=== PATIENT | female | born 1970 | race African-American/Black ===

== ENCOUNTER 2020-03-03 23:51 | Emergency (ER) | payer OTHER ==
[~2020-03-03] VITALS: Ht 167.6 cm; Wt 89.8 kg
[~2020-03-03 23:51] MED LIST: AMOXICILLIN 50500 MG PO; FLAGYL500 MG PO; LORTAB 5 MG/5001 TAB PO; NORCO 5-325 TA1 EACH PO; PERCOCET 5-3251 EACH PO
[2020-03-04 01:13] LABS: ABSOLUTE NEUTROPHILS 5.6 thou/uL (1.4-8.2); BASOPHILS 1.1 % (0.0-2.0); HEMATOCRIT 36.8 % (37.0-47.0); HEMOGLOBIN 12.2 gm/dL (12.0-15.0); MCH 28.5 pg (26.0-34.0); MCHC 33.2 g/dL (28.0-37.0); MCV 85.7 fL (80.0-100.0); MONOCYTES 9.5 % (1.0-8.0); PLATELET COUNT 306 thou/uL (150-400); POLYS 56.4 % (36.0-66.0)
[2020-03-04 01:16] LABS: ANION GAP 11 mmol/L (7-16); BUN 11 mg/dL (7-18); CALCIUM 8.6 mg/dL (8.5-10.1); CHLORIDE 102 mmol/L (98-107); CO2 25 mmol/L (21-32); CREATININE 0.8 mg/dL (0.6-1.0); GLUCOSE 104 mg/dL (74-106); POTASSIUM 3.4 mmol/L (3.5-5.1); SODIUM 138 mmol/L (136-145)
[2020-03-04 01:27] LABS: ALBUMIN 3.5 g/dL (3.4-5.0); DIRECT BILIRUBIN < 0.1 mg/dL (<0.1-0.2); LIPASE 74 U/L (73-393); SGOT 20 U/L (15-37); SGPT 17 U/L (30-65); TOTAL BILIRUBIN 0.2 mg/dL (0.2-1.0); TOTAL PROTEIN 8.1 g/dL (6.4-8.2); TROPONIN-I <0.06 ng/mL (<0.06)
[2020-03-04 02:09] LABS: URINE BILIRUBIN NEGATIVE (Negative); URINE BLOOD 1+ (Negative); URINE CLARITY CLEAR; URINE COLOR YELLOW; URINE GLUCOSE-RANDOM* NEGATIVE (Negative); URINE KETONES NEGATIVE (Negative); URINE LEUKOCYTES-REFLEX NEGATIVE (Negative); URINE NITRITE-REFLEX NEGATIVE (Negative); URINE PROTEIN (DIPSTICK) 2+ (Negative); URINE SPECIFIC GRAVITY 1.025 (1.005-1.035); URINE UROBILINOGEN 0.2 E.U./dl (0.2-1.0)
[2020-03-04 02:16] LABS: CASTS None Seen /LPF (None Seen); CRYSTALS None Seen /LPF (None Seen); MUCUS 0-3 Light strn/LPF (None Seen); SQUAMOUS 4-10 Moderate /LPF (0-3); URINE RBC 0-2 Rare /HPF (0-2); URINE WBC-REFLEX 0-5 Rare /HPF (0-5)
[2020-03-04] MEDS ORDERED: ZOFRAN ODT4 MG PO (03:06)
[2020-03-04] MEDS ORDERED: PANTOPRAZOLE SO40 M1 PO (03:06)
[2020-03-04 03:13] VITALS: BP 148/88
--- NOTE | 2020-03-04 11:38 | EKG ---
[facility] [place] [address] ELECTROCARDIOGRAM REPORT Name: ANT OWENS [facility] [id number] Admission: 03/03/20 Attend Phys: Discharge: 03/04/20 Date of : 68 Report #: [id number] THIS REPORT FOR: cc: [facility] - Clinic physician unknown [facility] - Clinic physician unknown Loyd Roper MD ~ THIS REPORT FOR: //name// [facility] ED Test Date: 2020-03-04 Test Time: 00:41:08 Pat Name: ANT OWENS Department: Room: Gender: [employer] Development Specialist Manager: [place] [id number] : 1970 Requested By: Tanner Stearns Order Number: [id number] MD: Loyd Roper Measurements Intervals [place] Rate: 81 P: 47 CO: 203 QRS: 41 QRSD: 95 T: 13 QT: 405 QTc: 470 Interpretive Statements Sinus rhythm Borderline prolonged CO interval Probable left atrial enlargement Compared to ECG 09/01/2009 04:25:27 No significant changes Electronically Signed On 03-04-2020 11:38:44 CDT by Loyd Roper [email or web address] <ELECTRONICALLY SIGNED> By: Loyd Roper MD 03/04/20 1138 0041 0041 Loyd Roper MD /EPI
== END 2020-03-04 03:17 | disposition home or self-care (01) ==
LOC: ER 23:51
PROVIDERS: Emergency Medicine
DX: R07.89 Other chest pain (principal); R11.2 Nausea with vomiting, unspecified; K21.9 Gastro-esophageal reflux disease without esophagitis; Z90.710 Acquired absence of both cervix and uterus; Z98.890 Other specified postprocedural states

== ENCOUNTER 2020-10-11 07:19 | Emergency (ER) | payer OTHER ==
[~2020-10-11] VITALS: Ht 167.6 cm; Wt 89.8 kg
[~2020-10-11 07:19] MED LIST changes: +PANTOPRAZOLE SO40 M1 PO; +ZOFRAN ODT4 MG PO
[2020-10-11] MEDS ORDERED: MELOXICAM15 MG PO (07:41)
[2020-10-11 07:43] LABS: URINE BILIRUBIN NEGATIVE (Negative); URINE BLOOD TRACE (Negative); URINE CLARITY CLEAR; URINE COLOR YELLOW; URINE GLUCOSE-RANDOM* NEGATIVE (Negative); URINE KETONES TRACE (Negative); URINE LEUKOCYTES-REFLEX NEGATIVE (Negative); URINE NITRITE-REFLEX NEGATIVE (Negative); URINE PROTEIN (DIPSTICK) NEGATIVE (Negative); URINE SPECIFIC GRAVITY 1.025 (1.005-1.035)
[2020-10-11 08:14] LABS: HEMATOCRIT 37.1 % (37.0-47.0); HEMOGLOBIN 12.1 gm/dL (12.0-15.0); MCH 27.9 pg (26.0-34.0); MCHC 32.6 g/dL (28.0-37.0); MCV 85.6 fL (80.0-100.0); RBC 4.34 mil/uL (4.20-5.00); RDW 13.7 % (10.5-14.5); WBC 9.2 thou/uL (4.0-11.0)
[2020-10-11 08:27] LABS: CALCIUM 9.1 mg/dL (8.5-10.1); CREATININE 0.8 mg/dL (0.6-1.0); POTASSIUM 3.8 mmol/L (3.5-5.1)
[2020-10-11 08:34] LABS: ALBUMIN 3.6 g/dL (3.4-5.0); TOTAL BILIRUBIN 0.5 mg/dL (0.2-1.0); TOTAL PROTEIN 7.8 g/dL (6.4-8.2)
[2020-10-11] MEDS ORDERED: KEFLEX500 M1 PO (09:09)
[2020-10-11] MEDS ORDERED: ZOFRAN ODT4 MG PO (09:09)
[2020-10-11 09:31] VITALS: BP 143/80
== END 2020-10-11 09:32 | disposition home or self-care (01) ==
LOC: ER 07:19
PROVIDERS: Emergency Medicine
DX: R35.0 Frequency of micturition (principal); R11.0 Nausea; K21.9 Gastro-esophageal reflux disease without esophagitis; E11.9 Type 2 diabetes mellitus without complications; Z90.710 Acquired absence of both cervix and uterus; Z79.899 Other long term (current) drug therapy

== ENCOUNTER 2020-11-23 02:46 | Emergency (ER) | payer OTHER ==
[~2020-11-23] VITALS: Ht 167.6 cm; Wt 89.8 kg
[~2020-11-23 02:46] MED LIST changes: +KEFLEX500 M1 PO; +MELOXICAM15 MG PO
[2020-11-23] MEDS ORDERED: METHOCARBAMOL750 MG PO (03:00)
[2020-11-23] MEDS ORDERED: NAPROSYN500 M1 PO (03:00)
[2020-11-23] MEDS ORDERED: BUTALB-ACETAMI1 EAC3 PO (03:00)
[2020-11-23] MEDS ORDERED: NORFLEX100 MG PO (03:59)
[2020-11-23 04:04] VITALS: BP 141/79
== END 2020-11-23 04:04 | disposition home or self-care (01) ==
LOC: ER 02:46
DX: M62.838 Other muscle spasm (principal); K21.9 Gastro-esophageal reflux disease without esophagitis; Z90.710 Acquired absence of both cervix and uterus; Z98.890 Other specified postprocedural states

== ENCOUNTER 2021-04-11 09:50 | Emergency (ER) | payer OTHER ==
[~2021-04-11] VITALS: Ht 167.6 cm; Wt 87.5 kg
[~2021-04-11 09:50] MED LIST changes: +BUTALB-ACETAMI1 EAC3 PO; +METHOCARBAMOL750 MG PO; +NAPROSYN500 M1 PO; +NORFLEX100 MG PO
[2021-04-11] MEDS ORDERED: ADVIL200 M3 PO (10:01)
[2021-04-11 10:40] LABS: URINE BILIRUBIN NEGATIVE (Negative); URINE BLOOD TRACE (Negative); URINE CLARITY SL CLOUDY; URINE COLOR YELLOW; URINE GLUCOSE-RANDOM* NEGATIVE (Negative); URINE KETONES NEGATIVE (Negative); URINE LEUKOCYTES-REFLEX NEGATIVE (Negative); URINE NITRITE-REFLEX NEGATIVE (Negative); URINE PROTEIN (DIPSTICK) NEGATIVE (Negative); URINE UROBILINOGEN 0.2 E.U./dl (0.2-1.0)
[2021-04-11 10:47] LABS: ABSOLUTE NEUTROPHILS 4.6 thou/uL (1.4-8.2); EOSINOPHILS 0.9 % (0.0-3.0); HEMATOCRIT 39.9 % (37.0-47.0); HEMOGLOBIN 12.9 gm/dL (12.0-15.0); LYMPHOCYTES 37.4 % (24.0-44.0); MCHC 32.4 g/dL (28.0-37.0); MCV 86.4 fL (80.0-100.0); MONOCYTES 8.3 % (1.0-8.0); PLATELET COUNT 334 thou/uL (150-400); POLYS 52.4 % (36.0-66.0); RBC 4.62 mil/uL (4.20-5.00); RDW 13.8 % (10.5-14.5); WBC 8.9 thou/uL (4.0-11.0)
[2021-04-11 10:53] LABS: ANION GAP 10 mmol/L (7-16); BUN 9 mg/dL (7-18); CALCIUM 9.2 mg/dL (8.5-10.1); CHLORIDE 103 mmol/L (98-107); CO2 24 mmol/L (21-32); CREATININE 0.8 mg/dL (0.6-1.0); GLUCOSE 104 mg/dL (74-106); SODIUM 137 mmol/L (136-145)
[2021-04-11 11:01] LABS: ALBUMIN 3.5 g/dL (3.4-5.0); POTASSIUM 4.7 mmol/L (3.5-5.1); SGOT 34 U/L (15-37); SGPT 23 U/L (14-59); TOTAL BILIRUBIN 0.5 mg/dL (0.2-1.0); TOTAL PROTEIN 8.8 g/dL (6.4-8.2)
[2021-04-11 14:00] VITALS: BP 142/83
--- NOTE | 2021-04-12 08:00 | EKG ---
[place] [address] [place] [address] ELECTROCARDIOGRAM REPORT Name: ANT OWENS [facility] [id number] Admission: 04/11/21 Attend Phys: Discharge: 04/11/21 Date of : 68 Report #: [id number] [facility] ED Test Date: 2021-04-11 Test Time: 09:57:51 Pat Name: ANT OWENS Department: Room: Gender: F Certified Public Accountant: polo : 1970 Requested By: Liborio Garrison Order Number: [id number] MD: Jerome Delgado Measurements Intervals [place] Rate: 72 P: 52 MO: 183 QRS: 50 QRSD: 93 T: 11 QT: 417 QTc: 457 Interpretive Statements Sinus rhythm Normal tracing Compared to ECG 03/04/2020 00:41:08 No significant changes Electronically Signed On 04-12-2021 8:00:10 CDT by Jerome Delgado [email or web address] <ELECTRONICALLY SIGNED> By: Jerome Delgado MD, [facility] 04/12/21 0800 [id number] 0957 Jerome Delgado MD, FAC /EPI
== END 2021-04-11 14:00 | disposition home or self-care (01) ==
LOC: ER 09:50
PROVIDERS: Emergency Medicine
DX: R06.02 Shortness of breath (principal); R53.83 Other fatigue; K21.9 Gastro-esophageal reflux disease without esophagitis; Z90.710 Acquired absence of both cervix and uterus; Z79.899 Other long term (current) drug therapy